=== PATIENT | female | born 1985 | race Caucasian/White ===

== ENCOUNTER 2016-12-27 18:12 | Emergency (ER) | payer OTHER ==
[~2016-12-27] VITALS: Ht 170.2 cm; Wt 77.1 kg
[~2016-12-27 18:12] MED LIST: LEVOTHYROXINE PO
[2016-12-27] MEDS ORDERED: LEVOTHYROXINE75 MCG PO (18:31)
[2016-12-27] MEDS ORDERED: EFFEXOR XR37.5 MG PO (18:31)
--- NOTE | 2016-12-27 19:27 | NUR ---
Assumed care of pt at this time. Pt resting in position of comfort for self. Pt c/o heavy vaginal bleeding for 2-3 days. Sts she is soaking several pads a day. Pt denies . Room set up for pelvic. Awaiting further eval.
--- NOTE | 2016-12-27 20:37 | NUR ---
pelvic exam completed with female chaparone. Pt stable for discharge per MD. Pt given ACI. Pt verbalized understanding of dc instructions. Pt ambulated out of er with steady gait.
[2016-12-27 20:38] VITALS: BP 143/56; PULSE 64; RESP 18; O2SAT 99
== END 2016-12-27 20:40 | disposition home or self-care (01) ==
LOC: ER 18:18
DX: N93.8 Other specified abnormal uterine and vaginal bleeding (principal); F41.9 Anxiety disorder, unspecified; E03.9 Hypothyroidism, unspecified; Z91.013 Allergy to seafood
CPT/HCPCS: 36415; 80048; 80076; 84703; 85025; 85730; 99284; A4663